=== PATIENT | male | born 1965 | race Two or more races ===

== ENCOUNTER 2024-01-17 19:21 | Emergency (ER) | payer MEDICAID, OTHER ==
[~2024-01-17] VITALS: Ht 177.8 cm; Wt 106.8 kg
[2024-01-17] MEDS ORDERED: ACET500T58 PO (19:58)
[2024-01-17] MEDS ORDERED: CEPH500C PO (19:58)
--- NOTE | 2024-01-17 19:59 | ED.PDOC ---
HPI Comments 58-year-old male presents to ER with complaints of laceration to scalp x1 hour. Patient reports that the metal spike on the gate of a fence hit him in the right side of his head 1 hour prior to arrival to ER when he was closing the gate and sustained laceration to right side of scalp at that time. Denies falling down/LOC. Patient currently complains of 8/10 right-sided headache, denying any other pain. Denies use of medications for current symptoms. Patient presents to ER ambulatory on arrival, alert and oriented x4, with steady gait and states he is unsure when his last tetanus shot was. Denies n/v, numbness/tingling, dizziness, confusion, use of blood thinners, neck pain, vision changes or any further symptoms/complaints Chief Complaint: Laceration Time Seen by MD: 19:50 Primary Care Provider: UNKNOWN Reviewed Notes: Nurses Notes, Medications, Allergies Allergies: Coded Allergies: Penicillins (Verified Allergy, Unknown, 01/17/24) Home Meds Active Scripts Acetaminophen (Acetaminophen) 500 Mg Tab, 500 MG PO Q4HPRN, #30 TAB 0 Refills Prov:BREE CLAUDIO 01/17/24 Cephalexin Monohydrate (Cephalexin) 500 Mg Cap, 1 CAP PO BID for 7 Days, #14 CAP 0 Refills Prov:BREE CLAUDIO 01/17/24 Information Source: Patient Mode of Arrival: Ambulatory Complexity: Simple Laceration Length (cm): 3 Skin Type: Linear Past Medical History PAST MEDICAL HISTORY: Denies Surgical History: Denies all surgeries Family History Family History: Unknown Social History Smoker: Non-Smoker Alcohol: Denies ETOH Use Drugs: Denies Drug Use Lives In: Home Constitutional: denies: chills, diaphoresis, fatigue, fever, malaise, sweats, weakness, others EENTM: denies: blurred vision, double vision, ear bleeding, ear discharge, ear drainage, ear pain, ear ringing, eye pain, eye redness, hearing loss, mouth pain, mouth swelling, nasal discharge, nose bleeding, nose congestion, nose pain, photophobia, tearing, throat pain, throat swelling, voice changes, others Respiratory: denies: cough, hemoptysis, orthopnea, SOB at rest, shortness of breath, SOB with excertion, stridor, wheezing, others Cardiovascular: denies: chest pain, dizzy spells, diaphoresis, Dyspnea on exertion, edema, irregular heart beat, left arm pain, lightheadedness, palpitations, PND, syncope, others Gastrointestinal: denies: abdomen distended, abdominal pain, blood streaked bowels, constipated, diarrhea, dysphagia, difficulty swallowing, hematemesis, melena, nausea, poor appetite, poor fluid intake, rectal bleeding, rectal pain, vomiting, others Genitourinary: denies: burning, dysuria, flank pain, frequency, hematuria, incontinence, penile discharge, penile sore, pain, testicle pain, testicle swelling, urgency, others Neurological: reports: others (As stated in HPI) Musculoskeletal: denies: back pain, gout, joint pain, joint swelling, muscle pain, muscle stiffness, neck pain, others Integumetry: reports: others (As stated in HPI) Allergic/Immunocompromised: denies: Difficulty Healing, Frequent Infections, Hives, Itching, others Hematologic/Lymphatic: denies: anemia, blood clots, easy bleeding, easy bruising, swollen glands, others Endocrine: denies: excessive hunger, excessive sweating, excessive thirst, excessive urination, flushing, intolerance to cold, intolerance to heat, unexplained weight gain, unexplained weight loss, others Psychiatric: denies: anxiety, bipolar disorder, depression, hopeless, panic disorder, schizophrenia, sleepless, suicidal, others Physical Exam General Appearance: No Apparent Distress, Obese HEENT: Normal ENT Inspection, PERRL/EOMI, Pharynx Normal, TMs Normal, Other (3 cm laceration noted to right frontal scalp. Slight TTP/swelling/erythema localized to wound edges. No further skin changes noted) Neck: Full Range of Motion, Non-Tender, Normal Respiratory: Chest Non-Tender, Lungs Clear, No Accessory Muscle Use, No Respiratory Distress, Normal Breath Sounds Cardiovascular: No Murmur, No Gallop, Regular Rate/Rhythm Breast Exam: Deferred Gastrointestinal: NOT DONE Genitalia: Deferred Pelvic: Deferred Rectal: Deferred Extremities: Normal capillary refill, Normal range of motion Neurologic: Alert (GCS 15), test developer II-XII nml as Tested, No Motor Deficits, Normal Affect, Normal Mood, No Sensory Deficits Cerebellar Function: Normal Reflexes: Normal Skin: Dry, Warm Lymphatic: No Adenopathy Was a procedure done? Was a procedure done?: Yes Sedation Sedation?: No Laceration Repair : Location Right frontal scalp Length 3 cm Anesthetic: Nothing Laceration Repair Prep: Saline (and peroxide) Laceration Repair Wound Comple: epidermis/dermis repair Laceration Repair: Kita (3 kita placed. Patient tolerated well without complication) Informed consent obtained: Yes Risks, benefits, and alternati: Yes Differential diagnosis Generic Laceration: Fracture, Retained Foriegn Body Differential Diagnosis: Other (Subarachnoid hemorrhage, sudural hematoma) X-Ray, Labs, Meds, VS Vital Signs Date Time Temp Pulse Resp B/P (MAP) Pulse Ox O2 Delivery O2 Flow Rate FiO2 01/17/24 20:15 98 Room Air 0 01/17/24 19:49 98.3 90 17 154/98 (116) 98 Current Medications Medications (Trade) Dose Ordered Sig/Buffy Route Start Time Stop Time Status Last Admin Diphtheria/ Tetanus/Acell Pertussis (Boostrix T-Dap) 0.5 ml ONCE ONCE IM 01/17/24 20:00 01/17/24 20:24 DC 01/17/24 20:55 TDAP 0.5 ML IM ORDERED ROCEPHIN 1 G IM ORDERED Patient reported improvement in symptoms and in no distress prior to discharge Wound care/cleaning discussed and advised Advised to follow up in two days for wound check Advised to follow up in seven days for removal of kita Advised to follow up with PCP in 1-2 days Patient verbalized understanding and agreeable with current plan of care Advised to return to ER immediately if symptoms worsen Time of 1ST Reevaluation: 19:24 Reevaluation 1ST: N/A Time of 2ND Reevaluation: 22:10 Reevaluation 2ND: Improved Patient Education/Counseling: Diagnosis, Treatment, Prognosis, Need For Follow Up Family Education/Counseling: No Family Present Departure 1 Departure Time of Disposition: 22:12 Impression: Primary Impression: Laceration of scalp Qualified Codes: S01.01XA - Laceration without foreign body of scalp, initial encounter Disposition: HOME / SELF CARE / HOMELESS Condition: Stable e-Prescriptions Acetaminophen (Acetaminophen) 500 Mg Tab 500 MG PO Q4HPRN, #30 TAB 0 Refills Prov: BREE CLAUDIO 01/17/24 Cephalexin Monohydrate (Cephalexin) 500 Mg Cap 1 CAP PO BID for 7 Days, #14 CAP 0 Refills Prov: BREE CLAUDIO 01/17/24 Discharged With: Self Critical Care Note Critical Care Time?: No Stability Stability form required: No Heart Score Heart Score: Heart Score Response (Comments) Value History N/A 0 EKG N/A 0 Age N/A 0 Risk Factors N/A 0 Troponin N/A 0 Total 0 BREE CLAUDIO Jan 17, 2024 19:59
[2024-01-17] MEDS: TETANUS-DIPTH-ACEL PERTUSSIS 0.5ML SYR Tdap IM ONE (20:55)
[2024-01-17] MEDS: cefTRIAXone SOD 1,000 MG VL IM ONE (22:24)
[2024-01-17 22:30] VITALS: BP 138/87; PULSE 74; RESP 17; TEMP 97.8; O2SAT 96
== END 2024-01-17 22:37 | disposition home or self-care (01) ==
LOC: ER 19:21 → EDSEX 19:21 → ER 22:37
DX: S01.01XA Laceration without foreign body of scalp, initial encounter (principal); Z88.0 Allergy status to penicillin; W22.8XXA Striking against or struck by other objects, initial encounter; Y93.89 Activity, other specified; Y92.89 Other specified places as the place of occurrence of the external cause; Y99.8 Other external cause status
CPT/HCPCS: 12002; 90471; 90715; 96372; 99284; J0696

== ENCOUNTER 2024-03-15 11:50 | Emergency (ER) | payer MEDICAID ==
[~2024-03-15] VITALS: Ht 177.8 cm; Wt 107.6 kg
[~2024-03-15 11:50] MED LIST: ACET500T58 PO; CEPH500C PO
[2024-03-15 12:38] LABS: Urine Bacteria None Seen /hpf (None Seen)
[2024-03-15 13:16] LABS: Urine Blood Negative /uL (Negative); Urine Clarity Clear (Clear); Urine Color Yellow (Yellow); Urine Mucus FEW (None Seen); Urine Protein, UAD Negative (Negative); Urine Specific Gravity 1.012 (1.001-1.035); Urine Squamous Epithelial Cell FEW /hpf (<5); Urine Urobilinogen Normal (Negative); Urine WBC 36 /HPF (0-3); Urine WBC Clumps PRESENT /hpf (None Seen); Urine pH 5.5 (5.0-9.0)
[2024-03-15 13:29] VITALS: BP 148/94; PULSE 76; RESP 20; TEMP 98; O2SAT 96
--- NOTE | 2024-03-15 13:34 | ED.PDOC ---
General HPI Comments A 58 YEAR OLD MALE PRESENTS TO THE ED WITH COMPLAINT OF RIGHT FLANK PAIN. PATIENT STATES HE HAS BEEN EXPERIENCING INTERMITTENT RIGHT FLANK PAIN OFF AND ON FOR THE PAST 2 WEEKS. NO RIGHT FLANK PAIN AT THIS TIME. PATIENT NOTES HE WAS ALSO HAD DARKER URINE OFF AND ON FOR THE PAST 2 WEEKS. PATIENT REPORTS HE ALSO HAS A HISTORY OF DIABETES AND USUALLY TAKES METFORMIN 500MG BID, BUT RAN OUT OF THIS MEDICATION. PATIENT DENIES FEVER, CHILLS, SHORTNESS OF BREATH, CHEST PAIN, ABDOMINAL PAIN, NAUSEA, VOMITING, HEADACHE, OR OTHER COMPLAINTS. NO OTHER SYMPTOMS OR MODIFYING FACTORS AT THIS TIME. PATIENT IS ALERT, ORIENTED X 4, AND HAS STEADY GAIT. NO OTHER SYMPTOMS REPORTED AT THIS TIME OF CARE. Chief Complaint: Flank Pain Time Seen by MD: 12:13 Primary Care Provider: UNKNOWN Reviewed notes: Nurses Notes, Medications, Allergies Allergies: Coded Allergies: Penicillins (Verified Allergy, Unknown, 01/17/24) Home Meds Active Scripts Metformin Hydrochloride (Metformin Hcl) 500 Mg Tab, 1 TAB PO BID, #30 TAB Prov:ELAINE JOHNSON 03/15/24 Ciprofloxacin Hcl (Cipro) 500 Mg Tab, 1 TAB PO BID, #20 TAB Prov:ELAINE JOHNSON 03/15/24 Ibuprofen (Ibuprofen) 800 Mg Tab, 1 TAB PO TID, #30 TAB Prov:ELAINE JOHNSON 03/15/24 Acetaminophen (Acetaminophen) 500 Mg Tab, 500 MG PO Q4HPRN, #30 TAB 0 Refills Prov:BREE CLAUDIO 01/17/24 Cephalexin Monohydrate (Cephalexin) 500 Mg Cap, 1 CAP PO BID for 7 Days, #14 CAP 0 Refills Prov:BREE CLAUDIO 01/17/24 Information Source: Patient Mode of Arrival: Ambulatory Severity: Moderate Inability to void: None Timing: Weeks Duration: Since onset, Intermittent, Days Prehospital treatment: None Onset: Spontaneous Symptoms: Frequency, Other (RIGHT FLANK PAIN) History of: None Location: (R) Flank Penile discharge: None Modifying factors: None associated signs and symptoms: Flank Pain Past Medical History PAST MEDICAL HISTORY: DM Surgical History: Denies all surgeries Family History Family History: Reviewed,noncontributory to illness Social History Smoker: Non-Smoker Alcohol: Denies ETOH Use Drugs: Denies Drug Use Lives In: Home Constitutional: denies: chills, diaphoresis, fatigue, fever, malaise, sweats, weakness, others EENTM: denies: blurred vision, double vision, ear bleeding, ear discharge, ear drainage, ear pain, ear ringing, eye pain, eye redness, hearing loss, mouth pain, mouth swelling, nasal discharge, nose bleeding, nose congestion, nose p ain, photophobia, tearing, throat pain, throat swelling, voice changes, others Respiratory: denies: cough, hemoptysis, orthopnea, SOB at rest, shortness of breath, SOB with excertion, stridor, wheezing, others Cardiovascular: denies: chest pain, dizzy spells, diaphoresis, Dyspnea on exertion, edema, irregular heart beat, left arm pain, lightheadedness, palpitations, PND, syncope, others Gastrointestinal: denies: abdomen distended, abdominal pain, blood streaked bowels, constipated, diarrhea, dysphagia, difficulty swallowing, hematemesis, melena, nausea, poor appetite, poor fluid intake, rectal bleeding, rectal pain, vomiting, others Genitourinary: reports: flank pain; denies: burning, dysuria, frequency, hematuria, incontinence, penile discharge, penile sore, pain, testicle pain, testicle swelling, urgency, others Neurological: denies: dizziness, fainting, headache, left sided numbness, left sided weakness, numbness, paresthesia, pre-existing deficit, right sided numbness, right sided weakness, seizure, speech problems, tingling, tremors, weakness, others Musculoskeletal: denies: back pain, gout, joint pain, joint swelling, muscle pain, muscle stiffness, neck pain, others Integumetry: denies: bruises, change in color, change in hair/nails, dryness, laceration, lesions, lumps, rash, wounds, others Allergic/Immunocompromised: denies: Difficulty Healing, Frequent Infections, Hives, Itching, others Hematologic/Lymphatic: denies: anemia, blood clots, easy bleeding, easy bruising, swollen glands, others Endocrine: denies: excessive hunger, excessive sweating, excessive thirst, excessive urination, flushing, intolerance to cold, intolerance to heat, unexplained weight gain, unexplained weight loss, others Psychiatric: denies: anxiety, bipolar disorder, depression, hopeless, panic disorder, schizophrenia, sleepless, suicidal, others All Other Systems: Reviewed and Negative Physical Exam General Appearance: No Apparent Distress, Normal HEENT: Normal ENT Inspection, PERRL/EOMI, Pharynx Normal, TMs Normal Neck: Full Range of Motion, Non-Tender, Normal, Normal Inspection Respiratory: Chest Non-Tender, Lungs Clear, No Accessory Muscle Use, No Respira tory Distress, Normal Breath Sounds Cardiovascular: No Edema, No JVD, No Murmur, No Gallop, Normal Peripheral Pulses, Regular Rate/Rhythm Breast Exam: Deferred Gastrointestinal: No Organomegaly, No Pulsatile Mass, Normal Bowel Sounds, Soft, Tenderness (RIGHT FLANK, NO CVA TENDERNESS, NO GUARDING AND REBOUND TENDERNESS. 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 Was a procedure done?: No Differential Diagnosis Kidney stone (Female): N/A Kidney stone (Male): DJD, Pyelonephritis, Renal failure, Strain, Urolithiasis, Urinary tract infection Penile/Scrotal: N/A Urinary Problem (Male): Plelonephritis, Urolithiasis, UTI Urinary Problem (Female): N/A X-Ray, Labs, Meds, VS Vital Signs Date Time Temp Pulse Resp B/P (MAP) Pulse Ox O2 Delivery O2 Flow Rate FiO2 03/15/24 13:29 76 20 96 Room Air 03/15/24 13:29 98.0 76 20 148/94 (112) 96 98.0 03/15/24 12:18 98.0 76 20 148/94 (112) 63 Lab Test 03/15/24 14:45 03/15/24 13:52 03/15/24 13:34 03/15/24 12:05 Range/Units POC Glucose 379 H 334 H 70-106 mg/dl White Blood Count 7.1 4.4-10.8 10^3/uL Red Blood Count 6.11 H 4.5-5.90 10^6/uL Hemoglobin 18.5 H 13.5-17.5 g/dL Hematocrit 54.1 H 41.0-53.0 % Mean Corpuscular Volume 88.5 80.0-100.0 fL Mean Corpuscular Hemoglobin 30.3 28.0-32.0 pg Mean Corpuscular Hemoglobin Concent 34.2 32.0-36.0 g/dL Red Cell Distribution Width 13.3 11.8-14.3 % Platelet Count 176 140-450 10^3/uL Mean Platelet Volume 9.1 6.9-10.8 fL Neutrophils (%) (Auto) 50.5 37.0-80.0 % Lymphocytes (%) (Auto) 35.9 10.0-50.0 % Monocytes (%) (Auto) 10.3 0.0-12.0 % Eosinophils (%) (Auto) 2.6 0.0-7.0 % Basophils (%) (Auto) 0.7 0.0-2.0 % Neutrophils # (Auto) 3.6 1.6-8.6 10 ^3/uL Lymphocytes # (Auto) 2.6 0.4-5.4 10 ^3/uL Monocytes # (Auto) 0.7 0-1.3 10 ^3/uL Eosinophils # (Auto) 0.2 0-0.8 10 ^3/uL Basophils # (Auto) 0.1 0-0.2 10 ^3/uL Nucleated Red Blood Cells 0.2 % Sodium Level 135 L 136-145 mmol/L Potassium Level 4.0 3.5-5.1 mmol/L Chloride Level 102 98-107 mmol/L Carbon Dioxide Level 24 20-31 mmol/L Anion Gap 9 5-15 Blood Urea Nitrogen 14 9-23 mg/dL Creatinine 1.10 0.700-1.30 mg/dL Glomerular Filtration Rate Calc 79 >90 mL/min BUN/Creatinine Ratio 12.7 10.0-20.0 Serum Glucose 301 H 74-106 mg/dL Calcium Level 9.6 8.7-10.4 mg/dL Total Bilirubin 1.3 H 0.2-1.0 mg/dL Aspartate Amino Transferase (AST) 31 13-40 U/L Alanine Aminotransferase (ALT) 44 H 7-40 U/L Alkaline Phosphatase 162 H 46-116 U/L Total Protein 7.5 5.7-8.2 g/dL Albumin 4.6 3.2-4.8 g/dL Urine Color Yellow Yellow Urine Clarity Clear Clear Urine pH 5.5 5.0-9.0 Urine Specific [place] 1.012 1.001-1.035 Urine Protein Negative Negative Urine Ketones Negative Negative Urine Blood Negative Negative /uL Urine Nitrite Negative Negative Urine Bilirubin Negative Negative Urine Urobilinogen Normal Negative mg/dL Urine Leukocyte Esterase 2+ Negative /uL Urine RBC 1 0 - 3 /hpf Urine WBC Clumps Present None Seen /hpf Urine Microscopic WBC 36 H 0-3 /HPF Urine Squamous Epithelial Cells Few <5 /hpf Urine Bacteria None seen None Seen /hpf Urine Mucus Few None Seen Urine Glucose 4+ H Normal mg/dL Current Medications Medications (Trade) Dose Ordered Sig/Buffy Route Start Time Stop Time Status Last Admin Ceftriaxone Sodium (Rocephin) 1,000 mg ONCE ONCE IM 03/15/24 14:00 03/15/24 14:01 DC 03/15/24 14:06 Sodium Chloride 1,000 ml @ 1,000 mls/hr Q1H ONCE IV 03/15/24 15:00 03/15/24 15:59 03/15/24 14:54 CT ABDOMEN AND PELVIS WITHOUT CONTRAST CLINICAL HISTORY: RIGHT FLANK PAIN TECHNIQUE: Multiple contiguous axial images of the abdomen and pelvis without intravenous contrast. The images were reformatted degenerate coronal and sagittal reconstructions. All CT scans at this medical facility are performed using dose modulation techniques as appropriate to a performed exam including the following:Automated exposure control was utilized; adjustment of the MA and/or KV according to patient size; and use of iterative reconstruction technique. Radiation Dose Information: CT Dose: CTDI volume is 23 mGy. Dose-length product is 1374 mGy*cm Comparison: None FINDINGS: Evaluation of the abdomen and pelvis is limited without intravenous contrast. There is no evidence of nephrolithiasis or hydronephrosis. There is no evidence of a ureteral calculus or hydroureter. There is diffuse fatty infiltration of the liver. The gallbladder, pancreas, adrenal glands, and spleen appear within normal limits. There is no gross evidence of abdominal lymphadenopathy. There is no free fluid or free air. The stomach grossly appears unremarkable. The small and large bowel loops demonstrate normal caliber. There are scattered diverticula in the colon without evidence of acute diverticulitis. The abdominal aorta and IVC appear within normal limits. There is prostatomegaly. Bladder demonstrates circumferential wall thickening likely related chronic outlet obstruction. There is no gross evidence of a pelvic mass. There is no free fluid collection. Lung bases are clear. There is no acute osseous abnormality. IMPRESSION: 1. There is no evidence of nephrolithiasis or hydronephrosis. 2. Hepatic steatosis. 3. Prostatomegaly. Bladder demonstrates circumferential wall thickening likely related to chronic outlet obstruction. 4. Distal colon diverticulosis. HS:Y ATED BY: ROSS ORTIZ MD DICTATED DATE/TIME: 03/15/241351 SIGNED BY: ROSS ORTIZ MD SIGNED DATE/TIME: 03/15/241351 CC: X-Ray, Labs, Meds, VS Comment EXTERNAL MEDICAL RECORDS REVIEWED: [NONE] INDEPENDENT HISTORIANS: [NONE] SOCIAL DETERMINANTS OF HEALTH: [NONE] LABS ORDERED: CBC, CMP, UA REVIEWED AND INTERPRETED RESULTS: LEUKO 2+, GLUC 301 IMAGING ORDERED: CT ABD/PEL TREATMENTS ORDERED: ROCEPHIN 1G IM, NS 1L IV, INSULIN 6 UNITS IV. BLOOD SUGAR RECHECK 240. PROCEDURES PERFORMED: NONE CRITICAL CARE TIME: NONE I HAVE DISCUSSED THE PATIENT WITH THE ATTENDING PHYSICIAN DR. DEL VALLE AND HE AGREES WITH THE PATIENT'S PLAN OF CARE AND DISPOSITION. BASED ON HISTORY OF PRESENT ILLNESS, AND PHYSICAL EXAM, PATIENT WILL BE DISCHARGED HOME. SHARED DECISION MAKING: PATIENT INSTRUCTED TO FOLLOW UP WITH PRIMARY CARE PROVIDER IN 1-2 DAYS FOR RE-EVALUATION OF SYMPTOMS. PATIENT VERBALIZES UNDERSTANDING TO RETURN TO ED FOR NEW OR WORSENING SYMPTOMS OR IF FOLLOW UP WITH PCP CANNOT BE OBTAINED. PATIENT FEELS COMFORTABLE GOING HOME AT THIS TIME. ALL QUESTIONS ADDRESSED AT TIME OF DISCHARGE. Images Reviewed?: Images reviewed and evaluated by me Time of 1ST Reevaluation: 15:58 Reevaluation 1ST: Improved Patient Education/Counseling: Diagnosis, Treatment, Need For Follow Up Family Education/Counseling: Diagnosis, Treatment, Need For Follow Up Medical Screening: No EMC Exist At This Time Departure 1 Departure Time of Disposition: 16:00 Impression: Primary Impression: Acute UTI (urinary tract infection) Additional Impressions: Enlarged prostate Noncompliance with diabetes treatment Disposition: HOME / SELF CARE / HOMELESS Condition: Stable Additional Instructions: FOLLOW-UP WITH PCP IN 1 TO 2 DAYS. TAKE MEDICATIONS PRESCRIBED. RETURN TO ED FOR ANY NEW OR WORSENING SYMPTOMS. e-Prescriptions Metformin Hydrochloride (Metformin Hcl) 500 Mg Tab 1 TAB PO BID, #30 TAB Prov: ELAINE JOHNSON 03/15/24 Ciprofloxacin Hcl (Cipro) 500 Mg Tab 1 TAB PO BID, #20 TAB Prov: ELAINE JOHNSON 03/15/24 Ibuprofen (Ibuprofen) 800 Mg Tab 1 TAB PO TID, #30 TAB Prov: ELAINE JOHNSON 03/15/24 Discharged With: Self Critical Care Note Critical Care Time?: No Stability Stability form required: No I personally scribed for ELAINE JOHNSON ([email or web address]) on 03/15/24 at 13:34. Electronically submitted by Jaret Vergara ([facility]). I personally scribed for ELAINE JOHNSON ([email or web address]) on 03/15/24 at 13:59. Electronically submitted by Jaret Vergara ([facility]). I personally scribed for ELAINE JOHNSON ([email or web address]) on 03/15/24 at 14:45. Electronically submitted by Jaret Vergara ([facility]). I personally scribed for ELAINE JOHNSON ([email or web address]) on 03/15/24 at 15:13. Electronically submitted by Jaret Vergara ([facility]). ELAINE JOHNSON Mar 15, 2024 13:34
[2024-03-15 13:54] LABS: Basophils # (auto) 0.1 10 ^3/uL (0-0.2); Basophils % (auto) 0.7 % (0.0-2.0); Eosinophils # (auto) 0.2 10 ^3/uL (0-0.8); Eosinophils % (auto) 2.6 % (0.0-7.0); Hematocrit 54.1 % (41.0-53.0); Hemoglobin 18.5 g/dL (13.5-17.5); Lymphocytes # (auto) 2.6 10 ^3/uL (0.4-5.4); Lymphocytes % (auto) 35.9 % (10.0-50.0); Mean Corpuscular Hemoglobin 30.3 pg (28.0-32.0); Mean Corpuscular Hgb Conc. 34.2 g/dL (32.0-36.0); Mean Corpuscular Volume 88.5 fL (80.0-100.0); Monocytes # (auto) 0.7 10 ^3/uL (0-1.3); Monocytes % (auto) 10.3 % (0.0-12.0); Neutrophils # (auto) 3.6 10 ^3/uL (1.6-8.6); Neutrophils % (auto) 50.5 % (37.0-80.0); Nucleated Red Blood Cells % 0.2 %; Platelet Count (auto) 176 10^3/uL (140-450); Red Blood Cells 6.11 10^6/uL (4.5-5.90); Red Cell Distribution Width 13.3 % (11.8-14.3); White Blood Cell 7.1 10^3/uL (4.4-10.8)
--- NOTE | 2024-03-15 13:54 | DVH ---
CT ABDOMEN AND PELVIS WITHOUT CONTRAST CLINICAL HISTORY: RIGHT FLANK PAIN TECHNIQUE: Multiple contiguous axial images of the abdomen and pelvis without intravenous contrast. The images were reformatted degenerate coronal and sagittal reconstructions. All CT scans at this medical facility are performed using dose modulation techniques as appropriate t o a performed exam including the following:Automated exposure control was utilized; adjustment of the MA and/or KV according to patient size; and use of iterative reconstruction technique. Radiation Dose Information: CT Dose: CTDI volume is 23 mGy. Dose-length product is 1374 mGy*cm Comparison: None FINDINGS: Evaluation of the abdomen and pelvis is limited without intravenous contrast. There is no evidence of nephrolithiasis or hydronephrosis. There is no evidence of a ureteral calculu s or hydroureter. There is diffuse fatty infiltration of the liver. The gallbladder, pancreas, adrenal glands, and spleen appear within normal limits. There is no gross evidence of abdominal lymphadenopathy. There is no free fluid or free air. The stomach grossly appears unremarkable. The small and large bowel loops demonstrate normal caliber . There are scattered diverticula in the colon without evidence of acute diverticulitis. The abdominal aorta and IVC appear within normal limits. There is prostatomegaly. Bladder demonstrates circumferential wall thickening likely related chroni c outlet obstruction. There is no gross evidence of a pelvic mass. There is no free fluid collection . Lung bases are clear. There is no acute osseous abnormality. IMPRESSION: 1. There is no evidence of nephrolithiasis or hydronephrosis. 2. Hepatic steatosis. 3. Prostatomegaly. Bladder demonstrates circumferential wall thickening likely related to chronic out let obstruction. 4. Distal colon diverticulosis. HS:Y
[2024-03-15] MEDS: cefTRIAXone SOD 1,000 MG VL IM ONE (14:06)
[2024-03-15 14:10] LABS: Albumin 4.6 g/dL (3.2-4.8); Anion Gap 9 (5-15); Aspartate Aminotransferase 31 U/L (13-40); BUN/Creatinine Ratio 12.7 (10.0-20.0); Blood Urea Nitrogen 14 mg/dL (9-23); Calcium 9.6 mg/dL (8.7-10.4); Carbon Dioxide 24 mmol/L (20-31); Chloride 102 mmol/L (98-107); Total Protein 7.5 g/dL (5.7-8.2)
[2024-03-15 14:18] LABS: Alanine Aminotransferase 44 U/L (7-40); Alkaline Phosphatase 162 U/L (46-116); Bilirubin, Total 1.3 mg/dL (0.2-1.0); Glucose 301 mg/dL (74-106); Sodium 135 mmol/L (136-145)
[2024-03-15] MEDS: SODIUM CHLORIDE 0.9% 1,000 ML IV ONE (14:54)
[2024-03-15] MEDS: InsuLIN REG 1unit/0.01ml Soln (100units/ml) IV ONE (15:06)
[2024-03-15] MEDS ORDERED: METF-370 PO (15:13)
[2024-03-15] MEDS ORDERED: IBUP-1456 PO (15:13)
[2024-03-15] MEDS ORDERED: CIPR-173 PO (15:13)
== END 2024-03-15 15:58 | disposition home or self-care (01) ==
LOC: ER 11:50
DX: N40.1 Benign prostatic hyperplasia with lower urinary tract symptoms (principal); N39.0 Urinary tract infection, site not specified; Z91.199 Patient's noncompliance with other medical treatment and regimen due to unspecified reason; E11.9 Type 2 diabetes mellitus without complications; Z79.1 Long term (current) use of non-steroidal anti-inflammatories (NSAID); Z79.84 Long term (current) use of oral hypoglycemic drugs; Z88.0 Allergy status to penicillin
CPT/HCPCS: 36415; 74176; 80053; 81001; 82962; 85025; 96360; 96372; 99285; J0696; J1815; J7030